=== PATIENT | male | born 1955 | race Caucasian/White ===

== ENCOUNTER → 2018-03-26 09:17 | Outpatient (CLI) | payer OTHER, SELFPAY ==
--- OUTSIDE RECORDS SUMMARY | 2018-05-28 05:53 | XMS RPT_ITS ---
:1955 Author Organization OHIP Support Name Relationship Address Phone LINDEN JOEL Unavailable [address] + [address] [place] [address] CALDERÓN ANNIACKE Unavailable [address] + [address]TOR[address] Unavailable [address] + [place], [place] [id number] [place] [address] LINDEN Unavailable [address] + [place], [place] [id number] [place] [address] LINDEN Unavailable [address] + [place] [address] [facility] Unavailable [address] + [place] [address] [facility] Unavailable [address] + [place] [address] [facility] Unavailable [address] + [place] [address] [facility] Unavailable [address] + [place] [address] [facility] Unavailable [address] + [place] [address] [facility] Unavailable [address] + [place] [address] [facility] Unavailable [address] + [place] [address] [facility] Unavailable [address] + [place], [place] [id number] [place] [address] LINDEN Unavailable [address] + [place] [address] [facility] [address] + [place] [address] [facility] [address] + [place] [address] [facility] [address] + [place] [address] [facility] [address] + [place] [address] Care Team Providers Name Role Phone TAMERA HERRERA., DR. KAYE King Attending Iram PHILIP MD., DR. KAYE King Primary Care Unavailable TAMERA HERRERA., DR. KAYE King Attending Iram PHILIP MD., DR. KAYE King Primary Care Unavailable TAMERA HERRERA., DR. KAYE King Attending Iram PHILIP MD., DR. KAYE King Primary Care Unavailable LAN ARIAS MD Attending Iram PHILIP MD., DR. KAYE King Primary Care Unavailable LAN ARIAS MD Attending Iram PHILIP MD., DR. KAYE King Primary Care Unavailable LAN ARIAS MD Attending Unavailable TAMERA YARBROUGH, DR. KAYE King Primary Care Unavailable LAN ARIAS MD Attending Iram PHILIP MD., DR. KAYE King Primary Care Unavailable LAN ARIAS MD Attending Iram PHILIP MD., DR. KAYE King Primary Care Unavailable Alondra Jane Attending Unavailable Alondra Jane Referring Unavailable KAYE PHILIP [facility] Unavailable PROBLEMS PROBLEMS No Problem Records FoundPROCEDURES PROCEDURES No Procedure Records FoundRESULTS RESULTS CT KNEE W/O CONTRAST Observed: 03/21/2018 Status: F Source: [facility] 4:00 PM [facility]OUNDATION REPOSITORY ORIGINAL CT KNEE W/O CONTRAST LEFT CLINICAL STATEMENT: varus deformity COMPARISON: None FINDINGS: This exam was performed according to our departmental dose- optimization program which includes automated exposure control, adjustment of the mA and/or kVp according to patient size and/or use of iterati ve reconstruction technique where applicable. CT of the knee performed without contrast with reformatted coronal and sagittal images. Survey images also obtained of the hip and ankle in preparation for prosthesis planning. Severe patellofemoral and medial tibiofemoral compartment joint arthrosis noted. There is bone on bone arthropathy in the medial tibiofemoral compartment. Prominent hypertrophic spurs noted in all 3 kinga nt compartments. There are degenerative cysts seen near the proximal tibiofibular syndesmosis. There may be some chondrocalcinosis in the posterior medial tibiofemoral compartment versus other dystrophi c calcification or even loose bodies. A small joint effusion visualized. There are some ossified bodies noted around the proximal tibiofibular syndesmosis. A prosthesis noted in the LEFT hip. The ankle is not evaluated in detail. There are degenerative changes in the visualized ankle/hindfoot. IMPRESSION: 1. 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 2. Dystrophic calcification/chondrocalcinosis or calcified loose bodies in the posterior medial tibiofemoral joint space 3. Numerous ossified bodies near the proximal tibiofibular syndesmosis Interpreted By: Ministerio Flores MD Preliminary Report By: Ministreio Flores MD Electronically Signed By: Ministerio Flores MD Dictated Date: 03/21/2018 11:14:03 AM Prelim Date: 03/21/2018 11:14:03 AM Sign Date: 03/21/2018 11:19:[address] KNEE W/O CONTRAST Observed: 03/21/2018 Status: F Source: [place] [employer] [facility] 3:00 PM [facility] EMERGENC[facility] DEPART[facility] REPOSITORY ORIGINAL CT KNEE W/O CONTRAST RIGHT CLINICAL STATEMENT: varus deformity COMPARISON: None FINDINGS: This exam was performed according to our departmental dose- optimization program which includes automated exposure control, adjustment of the mA and/or kVp according to patient size and/or use of iterati ve reconstruction technique where applicable. CT of the RIGHT knee performed for prosthesis planning. Axial images obtained of the knee with reformatted sagittal and coronal images. Survey images also obtained of the hip and ankle. Severe medial tibiofemoral compartment joint space loss and spurring noted. There is bone on bone arthropathy in the medial tibiofemoral compartment. Large hypertrophic lateral tibiofemoral compartment spurs seen but there is no significant joint space loss. Advanced patellofemoral joint arthrosis noted. Enthesophyte seen at the quadriceps insertion. A small joint effusion seen in the knee. Enthesophytes seen along the surface of the visualized RIGHT iliac bone. There are mild to moderate degenerative changes in the visualized RIGHT hip. The ankle is not evaluated in detail. No acute or aggressive osseous lesions seen. There are degenerative spurs in the visualized hindfoot/ankle. IMPRESSION: Severe tricompartmental degenerative changes in the RIGHT knee, most advanced in the medial tibiofemoral compartment and patellofemoral compartment Interpreted By: Ministerio Flores MD Preliminary Report By: Ministerio Flores MD Electronically Signed By: Ministerio Flores MD Dictated Date: 03/21/2018 11:11:29 AM Prelim Date: 03/21/2018 11:11:29 AM Sign Date: 03/21/2018 11:14:00 AM CBC Collected: 11/09/2017 Status: F Source: [facility] 7:25 [facility] REPOSITORY TYPE CODE TESTS RESULT OUT OF REFERENCE UNITS RANGE LAB WBC(LOINC) 4.60-10.80 10 3/mcL WBC 7.70 LAB RBCCT(LOINC 4.04-6.13 10 6/mcL ) RBC 4.88 LAB HGB(LOINC) 14.0-18.0 G/dL Hgb 14.9 LAB HCT(LOINC) 42.0-52.0 % Hct 43.6 LAB MCV(LOINC) 80.0-94.0 fL MCV 89.4 LAB MCH(LOINC) 27.0-31.2 pg MCH 30.6 LAB MCHC(LOINC) 31.8-35.4 G/dL MCHC 34.2 LAB RDW(LOINC) 11.5-14.5 % RDW 13.9 LAB PLT(LOINC) 130-400 10 3/mcL Platelet 234 LAB MPV(LOINC) 7.4-10.4 fL MPV 9.3 Performed By: #### CBC, ADIFF, ANEU #### [address] [address] #### LIPID, CMP, GFR, A1C #### [address] [address] .AUTO DIFF Collected: 11/09/2017 Status: F Source: [facility] 7:25 AM [facility] EMERGENCY DEPARTMENT REPOSITORY TYPE CODE TESTS RESULT OUT OF REFERENCE UNITS RANGE LAB JOSUE(LOINC) 37.0-80.0 % Neutrophil % 66.0 LAB LYM(LOINC) 10.0-50.0 % Lymphocyte % 22.5 LAB MON(LOINC) 1.7-13.0 % Monocyte % 7.9 LAB EO(LOINC) 0.0-7.0 % Eosinophil % 2.9 LAB BAS(LOINC) 0.0-2.5 % Basophil % 0.7 LAB ABLYM(LOIN 0.77-3.85 10 3/mcL C) Lymphocyte, 1.70 Absolute LAB DENA(LOINC 0.15-1.00 10 3/mcL ) Monocyte, 0.60 Absolute LAB AEOS(LOINC 0.00-0.40 10 3/mcL ) Eosinophil, 0.20 Absolute LAB ABAS(LOINC 0.00-0.19 10 3/mcL ) Basophil, 0.10 Absolute Performed By: #### CBC, ADIFF, ANEU #### [address] [address] #### LIPID, CMP, GFR, A1C #### [place] [id number] .NEUABS Collected: 11/09/2017 Status: F Source: [employer] 7:25 AM [facility] EMERGENC[facility]PARTMENT REPOSITORY TYPE CODE TESTS RESULT OUT OF REFERENCE UNITS RANGE LAB ANEU(LOINC) 2.85-6.16 10 3/mcL Neutrophil, 5.10 Absolute Performed By: #### CBC, ADIFF, ANEU #### [address] [address] #### LIPID, CMP, GFR, A1C #### [place] [id number] LIPID Collected: 11/09/2017 Status: F Source: [facility] 7:25 [facility] REPOSITORY TYPE CODE TESTS RESULT OUT OF REFERENCE UNITS RANGE LAB CHOL(LOINC 0-200 mg/dL ) Cholesterol 199 Result Comment: Cholesterol Reference Interval: Less than 200 Desirable 200-239 Borderline high risk 240 and above High risk LAB TRIG(LOINC) 0-150 mg/dL Triglycerides High 179 Result Comment: Triglyceride Reference Interval: Less than 150 Normal 150-199 Borderline high risk 200-499 High risk 500 or higher Very high risk LAB HD(LOINC) 40-60 mg/dL HDL Low Cholesterol 35 LAB LDL(LOINC) 0-130 mg/dL LDL Cholesterol 128 Performed By: #### CBC, ADIFF, ANEU #### [address] [address] #### LIPID, CMP, GFR, A1C #### [address] [address] CMP Collected: 11/09/2017 Status: F Source: [facility] 7:25 AM [facility] REPOSITORY TYPE CODE TESTS RESULT OUT OF REFERENCE UNITS RANGE LAB GLU(LOINC) 80-115 mg/dL Glucose High Level 140 LAB NA(LOINC) 136-145 mmol/L Sodium Level 141 LAB K(LOINC) 3.5-5.1 mmol/L Potassium Level 5.1 LAB CL(LOINC) 98-107 mmol/L Chloride 105 LAB CO2(LOINC) 23-31 mmol/L CO2 26 LAB EBAL(LOINC mEq/L ) Electrolyte Balance 10.0 LAB BUN(LOINC) 7-18 mg/dL BUN 17 LAB CRE(LOINC) 0.70-1.30 mg/dL Creatinine Lvl (s) 1.20 LAB BC(LOINC) 7-27 ratio BUN/Creatinine 14 Ratio LAB CA(LOINC) 8.4-10.2 mg/dL Calcium Lvl 9.6 LAB PROT(LOINC 6.4-8.2 G/dL ) Total Protein 7.8 LAB ALB(LOINC) 3.4-4.8 G/dL Albumin Level 3.7 LAB GLB(LOINC) G/dL Globulin 4.1 LAB AG(LOINC) 1.1-2.5 ratio Low A/G Ratio 0.9 LAB BILT(LOINC 0.2-1.0 mg/dL ) Bili Total 0.7 LAB AP(LOINC) 40-135 U/L Alk Phos 71 LAB AST(LOINC) 10-40 U/L AST/SGOT 37 LAB ALT(LOINC) 10-35 U/L ALT/SGPT High 51 Performed By: #### CBC, ADIFF, ANEU #### [address] [address] #### LIPID, CMP, GFR, A1C #### [address] [address] .GFR Collected: 11/09/2017 Status: F Source: [employer] 7:25 AM [facility] EMERGENCY [facility]PARTMENT REPOSITORY TYPE CODE TESTS RESULT OUT OF REFERENCE UNITS RANGE LAB GFRAA(LOINC ml/min/1.73 ) sqm GFR 74 Niuean Result Comment: GFR Population mean for , Non- Americans Ages 20-29 = 116 mL/min/1.73 sq.m. Ages 30-39 = 107 mL/min/1.73 sq.m. Ages 40-49 = 99 mL/min/1.73 sq.m. Ages 50-59 = 93 mL/min/1.73 sq.m. Ages 60-69 = 85 mL/min/1.73 sq.m. Ages 70+ = 75 mL/min/1.73 sq.m. Chronic Kidney Disease: Less than 60 mL/min/1.73 square meters End Stage Renal Disease: Less than 15 mL/min/1.73 square meters LAB GFRNO(LOINC) ml/min/1.73sqm GFR Non- 61 Result Comment: GFR Population mean for , Non- Americans Ages 20-29 = 116 mL/min/1.73 sq.m. Ages 30-39 = 107 mL/min/1.73 sq.m. Ages 40-49 = 99 mL/min/1.73 sq.m. Ages 50-59 = 93 mL/min/1.73 sq.m. Ages 60-69 = 85 mL/min/1.73 sq.m. Ages 70+ = 75 mL/min/1.73 sq.m. Chronic Kidney Disease: Less than 60 mL/min/1.73 square meters End Stage Renal Disease: Less than 15 mL/min/1.73 square meters Performed By: #### CBC, ADIFF, ANEU #### [place] [id number] [place], [place] [address] #### LIPID, CMP, GFR, A1C #### [address] [address] A1C Collected: 11/09/2017 Status: F Source: [employer] 7:25 AM [facility] EMERGENC[facility]PARTMENT REPOSITORY TYPE CODE TESTS RESULT OUT OF RANGE REFERENCE UNITS LAB A1C(LOINC) 4.5-6.2 % High Hgb A1c 7.8 Performed By: #### CBC, ADIFF, ANEU #### [place] [address] [place], [place] [address] #### LIPID, CMP, GFR, A1C #### [address] [address] CBC Collected: 07/13/2017 Status: F Source: [facility] 8:13 AM [facility] EMERGENCY DEPARTMENT REPOSITORY TYPE CODE TESTS RESULT OUT OF REFERENCE UNITS RANGE LAB WBC(LOINC) 4.60-10.80 10 3/mcL WBC 8.30 LAB RBCCT(LOINC 4.04-6.13 10 6/mcL ) RBC 4.72 LAB HGB(LOINC) 14.0-18.0 G/dL Hgb 14.8 LAB HCT(LOINC) 42.0-52.0 % Hct 42.8 LAB MCV(LOINC) 80.0-94.0 fL MCV 90.6 LAB MCH(LOINC) 27.0-31.2 pg MCH 31.2 LAB MCHC(LOINC) 31.8-35.4 G/dL MCHC 34.5 LAB RDW(LOINC) 11.5-14.5 % RDW 13.7 LAB PLT(LOINC) 130-400 10 3/mcL Platelet 223 LAB MPV(LOINC) 7.4-10.4 fL MPV 9.2 Performed By: #### CBC, ADIFF, ANEU, LIPID, CMP, GFR, A1C, PSA #### [place] [address] [place], [place] [address] .AUTO DIFF Collected: 07/13/2017 Status: F Source: [facility] 8:13 AM [facility] EMERGENCY DEPARTMENT REPOSITORY TYPE CODE TESTS RESULT OUT OF REFERENCE UNITS RANGE LAB JOSUE(LOINC) 37.0-80.0 % Neutrophil % 69.0 LAB LYM(LOINC) 10.0-50.0 % Lymphocyte % 21.8 LAB MON(LOINC) 1.7-13.0 % Monocyte % 6.2 LAB EO(LOINC) 0.0-7.0 % Eosinophil % 2.5 LAB BAS(LOINC) 0.0-2.5 % Basophil % 0.5 LAB ABLYM(LOIN 0.77-3.85 10 3/mcL C) Lymphocyte, 1.80 Absolute LAB DENA(LOINC 0.15-1.00 10 3/mcL ) Monocyte, 0.50 Absolute LAB AEOS(LOINC 0.00-0.40 10 3/mcL ) Eosinophil, 0.20 Absolute LAB ABAS(LOINC 0.00-0.19 10 3/mcL ) Basophil, 0.00 Absolute Performed By: #### CBC, ADIFF, ANEU, LIPID, CMP, GFR, A1C, PSA #### [address] [address] .NEUABS Collected: 07/13/2017 Status: F Source: [facility] 8:13 AM [facility] EMERGENCY DEPARTMENT REPOSITORY TYPE CODE TESTS RESULT OUT OF REFERENCE UNITS RANGE LAB ANEU(LOINC) 2.85-6.16 10 3/mcL Neutrophil, 5.70 Absolute Performed By: #### CBC, ADIFF, ANEU, LIPID, CMP, GFR, A1C, PSA #### [place] [address] [place], [place] [address] LIPID Collected: 07/13/2017 Status: F [facility] AM [facility] REPOSITORY TYPE CODE TESTS RESULT OUT OF REFERENCE UNITS RANGE LAB CHOL(LOINC 131-200 mg/dL ) Cholesterol High 215 Result Comment: Cholesterol Reference Interval: Less than 200 Desirable 200-239 Borderline high risk 240 and above High risk LAB TRIG(LOINC) 40-150 mg/dL Triglycerides High 223 Result Comment: Triglyceride Reference Interval: Less than 150 Normal 150-199 Borderline high risk 200-499 High risk 500 or higher Very high risk LAB HD(LOINC) 35-90 mg/dL HDL Cholesterol 40 Result Comment: HDL Reference Interval: Less than 40 Low - high risk 60 or above Optimal/lowers risk LAB LDL(LOINC) 0-130 mg/dL LDL Cholesterol 130 Result Comment: LDL is a calculated result and requires a 12-hr fast. LDL Reference Interval: Less than 100 Optimal 100-129 Near or above optimal 130-159 Borderline high risk 160-189 High risk 190 and above Very high risk Performed By: #### CBC, ADIFF, ANEU, LIPID, CMP, GFR, A1C, PSA #### [place] [address] [place], [place] [address] CMP Collected: 07/13/2017 Status: F [facility] AM [facility] EM[facility]PART[facility] REPOSITORY TYPE CODE TESTS RESULT OUT OF REFERENCE UNITS RANGE LAB GLU(LOINC) 80-115 mg/dL Glucose High Level 229 LAB NA(LOINC) 136-146 mEq/L Sodium Level 142 LAB K(LOINC) 3.5-5.1 mEq/L Potassium Level 4.8 LAB CL(LOINC) 98-107 mEq/L Chloride 103 LAB CO2(LOINC) 23-31 mEq/L CO2 31 LAB EBAL(LOINC mEq/L ) Electrolyte Balance 8.0 LAB BUN(LOINC) 7.0-18.0 mg/dL BUN 12.0 LAB CRE(LOINC) 0.6-1.2 mg/dL Creatinine Lvl (s) 0.9 LAB BC(LOINC) 7-27 ratio BUN/Creatinine 13 Ratio LAB CA(LOINC) 8.4-10.2 mg/dL Calcium Lvl 9.4 LAB PROT(LOINC 6.0-8.3 G/dL ) Total Protein 6.7 LAB ALB(LOINC) 3.4-4.8 G/dL Albumin Level 3.8 LAB GLB(LOINC) G/dL Globulin 2.9 LAB AG(LOINC) 1.1-2.5 ratio A/G Ratio 1.3 LAB BILT(LOINC 0.2-1.0 mg/dL ) Bili Total 0.8 LAB AP(LOINC) 40-135 IU/L Alk Phos 64 LAB AST(LOINC) 10-40 IU/L AST/SGOT High 53 LAB ALT(LOINC) 10-35 IU/L ALT/SGPT High 80 Performed By: #### CBC, ADIFF, ANEU, LIPID, CMP, GFR, A1C, PSA #### [address] [address] .GFR Collected: 07/13/2017 Status: F Source: [place] [employer] 8:13 AM [facility]OUNDATION REPOSITORY TYPE CODE TESTS RESULT OUT OF REFERENCE UNITS RANGE LAB GFRAA(LOINC ml/min/1.73 ) sqm GFR 105 Niuean Result Comment: GFR Population mean for , Non- Americans Ages 20-29 = 116 mL/min/1.73 sq.m. Ages 30-39 = 107 mL/min/1.73 sq.m. Ages 40-49 = 99 mL/min/1.73 sq.m. Ages 50-59 = 93 mL/min/1.73 sq.m. Ages 60-69 = 85 mL/min/1.73 sq.m. Ages 70+ = 75 mL/min/1.73 sq.m. Chronic Kidney Disease: Less than 60 mL/min/1.73 square meters End Stage Renal Disease: Less than 15 mL/min/1.73 square meters LAB GFRNO(LOINC) ml/min/1.73sqm GFR Non- >60 Result Comment: GFR Population mean for , Non- Americans Ages 20-29 = 116 mL/min/1.73 sq.m. Ages 30-39 = 107 mL/min/1.73 sq.m. Ages 40-49 = 99 mL/min/1.73 sq.m. Ages 50-59 = 93 mL/min/1.73 sq.m. Ages 60-69 = 85 mL/min/1.73 sq.m. Ages 70+ = 75 mL/min/1.73 sq.m. Chronic Kidney Disease: Less than 60 mL/min/1.73 square meters End Stage Renal Disease: Less than 15 mL/min/1.73 square meters Performed By: #### CBC, ADIFF, ANEU, LIPID, CMP, GFR, A1C, PSA #### [place] [address] [address] A1C Collected: 07/13/2017 Status: F Source: [facility] 8:13 AM [facility] EMERGENCY DEPARTMENT REPOSITORY TYPE CODE TESTS RESULT OUT OF RANGE REFERENCE UNITS LAB A1C(LOINC) 4.8-5.9 % High Hgb A1c 9.6 Performed By: #### CBC, ADIFF, ANEU, LIPID, CMP, GFR, A1C, PSA #### [place] [address] [address] PSA Collected: 07/13/2017 Status: F Source: [facility] 8:13 AM [facility] EMERGENCY DEPARTMENT REPOSITORY TYPE CODE TESTS RESULT OUT OF REFERENCE UNITS RANGE LAB PSA(LOINC) 0.00-4.00 ng/mL Prostate 2.31 Specific Antigen Performed By: #### CBC, ADIFF, ANEU, LIPID, CMP, GFR, A1C, PSA #### [address] [address] ALLERGIES ALLERGIES DATE TYPE / CODE NAME / CODE REACTION SEVERITY SOURCE 12/30/2012 Drug valsartan/F0 Other Unknown [facility] Allergy/4160 [id number]([facility] [address](SNOMED ORM) Repository CT) ENCOUNTERS ENCOUNTERS ADMIT/DISCHARGE ACCOUNT NUMBER ADMITTING ENCOUNTER LOCATION SOURCE CLASS 03/26/2018 [id number] [facility] 03/21/2018/03/21/19 [id number] Ambulatory BBuilding:RA [place] [facility] Repository 03/10/2018 [id number] Ambulatory BBuilding:OP [facility] Repository 03/10/2018 [id number] Ambulatory BBuilding:OS [facility] Repository 03/10/2018 [id number] Ambulatory BBuilding:OP [facility] Repository 03/10/2018 [id number] Ambulatory BBuilding:OS [facility] Repository 11/09/2017/11/10/19 [id number] Ambulatory [address] ding:OLAB [facility] Repository 08/30/2017 [id number] Ambulatory BBuilding:DV [facility] Repository 07/13/2017/07/14/19 [id number] Ambulatory BBuilding:OL [address] Repository PAYERS PAYERS ENCOUNTER GUARANTOR PAYER SUBSCRIBER SOURCE 03/26/2018 [facility] [id number] Insurance:AETNAExcel[facility] [address] Number: [id number] [id number] Repository [address]Qdq: [phone]) Date:2098-34-05[phone] ( [place] [address]RE: 03/26/2018 [facility]:SELF PAY [facility] Number: Effective Repository Date:2018-03-14 03/21/2018 [facility] Insurance:AETNA DUNHAMDOB: [facility] [id number] NACPolicy Number: [id number] Date:2018-03-10 - [address], [address] [id number] [place] [address]Sgx: [email or web address] Name:CP [address] : [id number] [place] [address] (HP)Tel: (000) (HP)Tel: [phone]: (WP) [phone] (WP) [phone] 03/10/2018 [facility]: [facility] NACPolicy Number: [id number] [address], [place] Date:2018-03-10 - [address] [facility] [address] [id number] [place] [address]Ntw: [email or web address] Name:CP O BOX : [address] [place] [address] (HP)Tel: (000) (HP)Tel: [phone]: (WP) [phone] (WP) [phone] 03/10/2018 [facility]: Insurance:[facility]ITAL[facility]: [facility] NACPolicy Number: [id number] [id number] [address], [place] Date:2018-03-10 - [address] [address] [id number] [place] [address]Xaq: [email or web address] Name:CP [address] : [id number] [place] [address] (HP)Tel: (000) (HP)Tel: [phone]: (WP) [phone] (WP) [phone] 03/10/2018 JESUS Fouzia [facility]: Insurance:[facility]: [facility] NACPolicy Number: [id number] [address] [facility] [place] Date:2018-03-10 - [address] [place] [address], [address]~[facility]. [id number] [place] [address]Aot: [email or web address] Name:CP O BOX : [address] [place] [address] (HP)Tel: (880) (HP)Tel: [phone]: (WP) [phone] (WP) [phone] 03/10/2018 [facility]: [facility] NACPolicy Number: [id number] [id number] [address] [facility] [place] Date:2018-03-10 - [address] [place] [address], [address]~[facility]. [id number] [place] [address]Fdr: [email or web address] Name:CP O BOX : [address] [place] [address] (HP)Tel: (000) (HP)Tel: [phone]: (WP) [phone] (WP) [phone] 11/09/2017 [facility]: Insurance:[facility]: [facility] NACPolicy Number: [id number] [address] [id number] [address], [place] Date:2017-11-09 - [address] [place] [address], [address]~[facility]. [id number] [place] [address]Boa: [email or web address] Name:AP [address] : [address] (HP)Tel: (000) (HP)Tel: [phone]: (WP) [phone] (WP) [phone] 08/30/2017 [facility]: [facility] NACPolicy Number: [id number] [id number] [address] [facility] [place] Date:2017-08-20 - [address] [place] [address], [address]~[facility] [id number] [place] [address]Nwb: [email or web address] Name:AP [address] : [id number] [place] [address] (HP)Tel: (000) (HP)Tel: [phone]: (WP) [phone] (WP) [phone] 07/13/2017 [facility]: Insurance:AETCITIZENS [facility]AP[facility]: [facility] AECPolicy Number: [id number], [place] Date:2017-07-13 - [address] [place] [address], [address]~[facility]. [id number] [place] [address]Jyx: [email or web address] [email or web address] CENTERkeyona Name:DEVELOPMENTAL BEHAVIORAL PHYSICIAN [id number] : [place], [place] (HP)Tel: (000) (HP)Tel: [phone]: (WP) [phone] ([phone]
== END ==
PROVIDERS: Family Provider Family Medicine; PCP Family Medicine; Referring Provider Nurse Practitioner Family; Visit Provider Nurse Practitioner Family
DX: Z01.818 Encounter for other preprocedural examination (principal)

== ENCOUNTER → 2018-04-01 05:45 | Outpatient (CLI) | payer OTHER, SELFPAY ==
--- NOTE | 2018-04-01 11:47 | STRESSREP_ITS ---
Stress Test Report Date: 04/01/2017 Procedure: Pharmacologic stress nuclear imaging study Indications: Hypertension; preoperative cardiovascular evaluation Consent: Per the patient Procedure: The patient underwent pharmacologic (Regadenoson) evaluation with a peak heart rate of 74 beats per minute (46% predicted maximal heart rate) and a peak blood pressure of 198/90 mmHg. The baseline ECG demonstrated normal sinus rhythm; incomplete left bundle branch block pattern . The peak pharmacologic ECG demonstrated no obvious ECG changes . There were no cardiac dysrhythmias pretest, during pharmacologic infusion, or recovery. There was no complaint of chest discomfort during pharmacologic infusion or recovery. The examination was discontinued secondary to completion of protocol. Impression: 1. Pharmacologic (Regadenoson) evaluation 2. Peak pharmacologic ECG with no obvious ECG changes . 3. There were no cardiac dysrhythmias pretest, during pharmacologic infusion, or recovery. 4. Nuclear images pending Myocardial perfusion imaging study: Technique: The patient was injected with 14.9 millicuries of technetium 99m Cardiolite and subsequently rest SPECT Cardiolite nuclear imaging was obtained in the horizontal long, vertical long, and short axis views. The patient underwent pharmacologic (Regadenoson) evaluation with a peak heart rate of 74 beats per minute (46 % percent predicted maximal heart rate) and a peak blood pressure of 198/90 mmHg. The patient was injected with 44.8 millicuries of technetium 99m Cardiolite and subsequently stress SPECT Cardiolite nuclear imaging was obtained in the horizontal long, vertical long, and short axis views. A gated Cardiolite study at peak stress was obtained. Interpretation: Rest and stress SPECT Cardiolite nuclear imaging status post realignment and normalization demonstrate the appearance of diminished tracer uptake in portions of the basal to mid inferior segments at rest. Status post stress there are similar type findings as well as areas of diminished tracer uptake in portions of the mid to distal anterior segments as well as the mid to distal inferior/lateral segments . There is end systolic thickening and brightening. The gated Cardiolite study demonstrates myocardial thickening and inward wall motion. The reported LVEF is 43 %. Impression: 1. Rest and stress SPECT Cardiolite nuclear imaging demonstrate myocardial perfusion changes potentially compensable an area of previous myocardial injury/infarction involving portions of the basal to distal inferior segments as well as post stress myocardial perfusion changes concerning for an area of stress induced myocardial ischemia involving portions of the mid to distal anterior and mid and distal lateral/inferolateral segments . 2. The gated Cardiolite study reports an LVEF of 43 %. Of note, secondary to the patient's body habitus, contribution from soft tissue attenuation/artifact the aforementioned findings cannot necessarily be excluded. This note was generated with [employer] software. It may contain incorrect words, spelling, and punctuation that were not noted in checking the note before signing.
== END ==
PROVIDERS: Family Provider Family Medicine; PCP Family Medicine; Referring Provider Nurse Practitioner Family; Visit Provider Nurse Practitioner Family
DX: I10 Essential (primary) hypertension (principal); G47.33 Obstructive sleep apnea (adult) (pediatric)
CPT/HCPCS: 78452; 93017; A9500; A4216; J2785

== ENCOUNTER 2018-04-11 06:31 | Day surgery (SDC) | payer OTHER, SELFPAY ==
[2018-04-09 15:37] VITALS: BMI 45.7
--- NOTE | 2018-04-10 08:30 | RAD_ITS ---
HISTORY: CHEST PAIN EXAM:XR Chest 2 Views: COMPARISON: 03/10/2013 FINDINGS: No significant change. Normal heart size. No vascular congestion, pleural effusion, or acute pulmonary infiltration. No pneumothorax. Remote healed fracture of the mid right clavicle. Benign changes of DISH of the dorsal spine. RAD/Chest PA and Lateral IMPRESSION: No acute cardiopulmonary disease. No significant interval change. at 0217 Reported and signed by: Maged Champion MD Electronically Signed: Maged Champion, at 2:16 EST Tel , Service support ,
[2018-04-10 08:59] LABS: Absolute Lymphocyte Count 1.59 X10^3/ul (0.83-4.51); Absolute Neutrophil Count 5.8 X10^3/uL (2.0-7.7); Basophil# 0.02 X10^3/uL; Basophil% 0.2 % (0-1); Eosinophil# 0.21 X10^3/uL; Eosinophils% 2.6 % (0-5); Hematocrit 42.5 % (40-54); Hemoglobin 14.1 g/dl (13.0-16.5); Lymphocyte # 1.59 X10^3/ul (4.0); Lymphocyte % 19.3 % (19-41); Mean Corp Hgb Conc 33.2 g/gl (32-36); Mean Corpuscular Hgb 30.3 pg (27.0-32.0); Mean Corpuscular Volume 91.4 fL (80-94); Mean Platelet Vol. 10.9 fl (6.2-12.0); Monocyte# 0.58 X10^3/uL; Monocyte% 7.1 % (0-10); Neutrophil # 5.78 X10^3/uL (2.7-7.7); Neutrophil % 70.3 % (47-70); Platelet Count 249 K/mm3 (150-450); RBC Distribution Width CV 13.9 % (11.6-14.6); RBC Distribution Width SD 45.9 fl (35.1-43.9); Red Blood Count 4.65 M/mm3 (4.6-6.2); White Blood Count 8.2 K/mm3 (4.4-11.0)
[2018-04-10 09:00] LABS: POSITIVE COUNT NO; POSITIVE DIFFERENTIAL NO; POSITIVE MORPHOLOGY NO
[2018-04-10 09:02] VITALS: BMI 45.7
[2018-04-10 09:37] LABS: Anion Gap 12 (5-15); BUN 19 mg/dL (7-18); Calcium,Total 9.7 mg/dL (8.5-10.1); Chloride 104 mmol/L (98-107); Creatinine, Serum 1.27 mg/dL (0.70-1.30); EST Glomerular Filtration Rate 61 mL/min (>60); Est Glom Filt Rate - Afr Amer 74 mL/min (>60); Estimated Creatinine Clearance 79.93 ml/min; Glucose 154 mg/dL (74-106); Potassium 3.6 mmol/L (3.5-5.1); Sodium Level 142 mmol/L (136-145)
[2018-04-11] VITALS (23 sets, daily range): BP systolic 191–225; BP diastolic 65–97; PULSE 55–63; RESP 12–19; TEMP 36.8–37.2; O2SAT 95–98
--- NOTE | 2018-04-11 08:52 | CL.D_ITS ---
Patient Name: JESUS JOEL Study Date: 04/11/2018 Performing: Jerry Evans MD Ht: 79.13 inches 201 cm : 1955 Wt: 405.65 lbs 184 kg Age: 62 Gender: male BSA: 3.08 PROCEDURE(S) PERFORMED TS65-EVR/COR/LV CLINICAL PROFILE AND INDICATIONS Indications: Suspected CAD Heart Failure: None Stress/Imaging Stress Test w/SPECT MPI: Yes Result: Positive Intermediate RiskStress Test with SP ECT MPI: Positive Intermediate Risk CAD Presentations: No Sxs, no angina. CONCLUSIONS Coronary artery disease with moderately severe stenosis noted in the mid left anterior descending art gem and severe disease noted of the ostium of the posterior descending artery. RECOMMENDATIONS Referred for immediate PCI DESCRIPTION OF PROCEDURE The patient arrived to the procedure lab. The risks and benefits of the procedure as well as a full d escription of our services here and current unavailability of surgical backup were fully explained to the patient and/or their significant other prior to the catheterization. The Timeout was completed, verifying the correct patient and procedure. The patient's procedural site was prepped and draped in the usual fashion. Local anesthetic was given subcutaneously to right radial region with Lidocaine 2% . Using a modified Seldinger technique, arterial access was obtained via the right radial artery, a 5 Fr sheath was inserted. Left Coronary Artery selective angiography was performed in multiple views u sing a 5 Fr. 4.0 [place] catheter. Right Coronary Artery selective angiography was then performed in mu ltiple views using a 5 Fr. 4.0 [place] catheter. Left Ventriculography was performed in [place]ANK[place] projection using a 5 Fr. Pig[place] catheter. LV to AO pullback pressures were then recorded. Left Coronary Artery selective angiography was performed in multiple views using a 6 Fr. JL 6-125cm cathet er. CORONARY ANGIOGRAPHY DOMINANCE: Right Dominant LEFT HEART ASSESSMENT Left Ventricular Ejection Fraction: by LV Gram 60 % Normal LV wall motion Normal Left Ventricular systolic function LEFT MAIN: Angiographically normal LEFT ANTERIOR DECENDING ARTERY: MID LAD: 60-70 % Stenosis CIRCUMFLEX ARTERY: No significant disease noted RIGHT CORONARY ARTERY: 80 ostial PDA % Stenosis COMPLICATIONS PROCEDURE MEDICATIONS Fentanyl 50 mcg IV Versed 1 mg IV Versed 1 mg IV Fentanyl 25 mcg IV Oxygen: 2 L/min via nasal cannula Heparin diluted in 23cc Heparinized saline. Patient given 10cc IA of this solution. 04/11/2018 07:59:2 9 Heparin 2000 unit(s) IV 04/11/2018 08:43:31 Nitro Tab 0.4 mg PO 04/11/2018 08:01:12 Verapamil 2.5mg, Ntg 100mcgs, 2000 units of Heparin diluted in 23cc Heparinized saline. Patient give n 10cc IA of this solution. 04/11/2018 07:59:29 SUMMARY OF HEMODYNAMIC DATA Time AIR REST ECG 07:09:04 AO 159/62 (103) SA 08:03:02 LV 149/0, 6 08:18:10 LV 157/2, 12 08:18:17 LV 170/0, 18 08:19:56 LVp 169/2, 17 08:20:02 AOp 164/67 (105) 08:20:07 Signed By Jerry Evans MD On 04/11/2018 8:50:49 AM Jerry Evans MD
[2018-04-11 10:17] LABS: ACT Activated Clotting Time 246 sec (74-137)
[2018-04-11 10:17] LABS: ACT Activated Clotting Time 257 sec (74-137)
[2018-04-11] MEDS: 0.9% Normal Saline 1,000 ML 150 ML IV (10:30)
--- NOTE | 2018-04-11 10:30 | EKG12_ITS ---
Test Reason : S/P PCI Blood Pressure : / mmHG Vent. Rate : 057 BPM Atrial Rate : 057 BPM P-R Int : 200 ms QRS Dur : 138 ms QT Int : 474 ms P-R-T Axes : 023 -52 103 degrees QTc Int : 461 ms Sinus bradycardia Left axis deviation Left ventricular hypertrophy with QRS widening and repolarization abnormality Abnormal ECG Confirmed by MISAEL HERRERA, HUSSEIN ([id number]), deputy editor in chief DALTON HURTADO ([id number]) on 04/17/2018 1:07:22 PM Referred By: Hussein Evans Confirmed By:HUSSEIN EVANS MD
--- NOTE | 2018-04-11 11:30 | NURSING ---
Called Dr Evans's office and verified pt's med list.
--- NOTE | 2018-04-11 11:43 | CRPHASE1 ---
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 Risk Factors/Lifestyle Smoking Status: Never smoker Hx Hypertension: Yes Hx Diabetes Mellitus Type 1: No Hx Diabetes Mellitus Type 2: Yes Hx Metabolic Disorders: Yes Hx Dyslipidemia: Yes Hx Obesity: Yes Height: 6 ft 7 in - BMI 45.7 Stress: Home/Family ETOH: No Substance Abuse: No Risk Factor for Sedentary Lifestyle: Highest Risk Family History: Family History (Last Reviewed 04/09/18 @ 16:07 by Jerry Evans MD) Brother CAD (coronary artery disease) Father Diabetes Heart disease Mother Kidney disease Past Cardiac Illness: Myocardial Infarction Phase I Education Given On:: [place], Nutrition, Antiplatelet medication, Diabetes - Type II Issues Affecting Care:: None Knowledge of Condition:: Yes Learning Preferences: Verbal, Written - AT BEDSIDE Hospital Course Presenting Symptoms:: ABNORMAL STRESS TEST Medical/Surgical History MO:: Yes - HISTORY - FROM CARDIAC SPASM Angina:: No CAD:: No BRITTANI:: Yes Diabetes:: Yes Diabetes Type I:: No Diabetes Type II:: Yes Hypertension:: Yes Dyslipidemia:: Yes GERD:: Yes Depression:: Yes Other Medical/Surgical Issues:: PULMONARY HTN CABG: No PTCA:: No ICD:: No Pacemaker:: No Discharge/Home/Social Eval Discharge Disposition: Home Marital Status: - AT BEDSIDE
--- NOTE | 2018-04-11 11:47 | CRPHASE1_ITS ---
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 Risk Factors/Lifestyle Smoking Status: Never smoker Hx Hypertension: Yes Hx Diabetes Mellitus Type 1: No Hx Diabetes Mellitus Type 2: Yes Hx Metabolic Disorders: Yes Hx Dyslipidemia: Yes Hx Obesity: Yes Height: 6 ft 7 in - BMI 45.7 Stress: Home/Family ETOH: No Substance Abuse: No Risk Factor for Sedentary Lifestyle: Highest Risk Family History: Family History (Last Reviewed 04/09/18 @ 16:07 by Jerry Evans MD) Brother CAD (coronary artery disease) Father Diabetes Heart disease Mother Kidney disease Past Cardiac Illness: Myocardial Infarction Phase I Education Given On:: [place], Nutrition, Antiplatelet medication, Diabetes - Type II Issues Affecting Care:: None Knowledge of Condition:: Yes Learning Preferences: Verbal, Written - AT BEDSIDE Hospital Course Presenting Symptoms:: ABNORMAL STRESS TEST Medical/Surgical History [place]:: Yes - HISTORY - FROM CARDIAC SPASM Angina:: No CAD:: No BRITTANI:: Yes Diabetes:: Yes Diabetes Type I:: No Diabetes Type II:: Yes Hypertension:: Yes Dyslipidemia:: Yes GERD:: Yes Depression:: Yes Other Medical/Surgical Issues:: PULMONARY HTN CABG: No PTCA:: No ICD:: No Pacemaker:: No Discharge/Home/Social Eval Discharge Disposition: Home Marital Status: - AT BEDSIDE
--- NOTE | 2018-04-11 11:47 | CRPH1.INSTRU ---
General Education CAD and cardiac anatomy and function:: Patient communicates acknowledgment - AT BEDSIDE, Family communicates acknowledgment Explanation of diagnoses and procedures:: Patient communicates acknowledgment, Family communicates acknowledgment Sign/Symptoms of OK:: Patient communicates acknowledgment, Family communicates acknowledgment Antiplatelet therapy: Patient communicates acknowledgment, Family communicates acknowledgment Proper use of NTG-SL: Not instructed Emergency procedures and activation of EMS: Patient communicates acknowledgment, Family communicates acknowledgment Compliance of all prescribed medications: Patient communicates acknowledgment, Family communicates acknowledgment Smoking Patient Nicotine/Smoking Risk Factors Are:: Never smoked Dyslipidemia Recommendations Include:: Lipid profile not available, Reviewed NCEP/ATP guidelines, Therapeutic Lifestyle Change dietary guidelines Dyslipidemia Response Code:: Patient communicates acknowledgment, Family communicates acknowledgment Overweight/Obesity Patient Overweight/Obesity Risk Factors Are:: Obesity - > or = 30 Recommendations Include:: Weight loss of 5-10%, Reduced calorie diet, Exercise 5-7 times/week Overweight/Obesity:: Patient communicates acknowledgment, Family communicates acknowledgment Hypertension Recommendations Include:: BP <130/80 if diabetic, DASH dietary guidelines, Decrease/maintain normal body weight, Moderation of ETOH Hypertension:: Patient communicates acknowledgment, Family communicates acknowledgment Heart Disease Patient Heart Disease Risk Factors Are:: Family history of heart disease < 65 years old, Previous cardiac event Recommendations Include:: Educated family members of their risk, Educated family members of importance of prevention of heart disease Heart Disease Response Code:: Patient communicates acknowledgment, Family communicates acknowledgment Diabetes Patient Diabetes Risk Factors Are:: Elevated blood sugars Recommendations Include:: Maintain fasting blood sugars 70-110 md/dL, Maintain HgbA1c of 6% or less, Monitor blood sugar as prescribed, Diabetic dietary guidelines, Decrease/maintain body weight Diabetes:: Patient communicates acknowledgment, Family communicates acknowledgment Metabolic Syndrome Patient Metabolic Syndrome Risk Factors Are [3 of 5]:: Fasting blood sugar > 100 mg/dL, Waist circumference > 35 [female] or 40 [male], Hypertension Recommendations Include:: Reinforce compliance to risk factor modifications, Patient is diabetic, Encouraged follow-up with Primary Care Physician Metabolic Syndrome Response Code:: Patient communicates acknowledgment, Family communicates acknowledgment Sedentary Patient Sedentary Risk Factors Are:: Lack of regular exercise Recommendations Include:: Aerobic exercise 5-7 times/week for 20-30 minutes continuously, Benefits of regular exercise, Discussed home walking program, Monitored Outpatient Cardiac Rehab Sedentary Response Code:: Patient communicates acknowledgment, Family communicates acknowledgment Stress Recommendations Include:: Identification of stressors, and assessment of coping skills, Stress management techniques Stress Response Code:: Patient communicates acknowledgment, Family communicates acknowledgment
--- NOTE | 2018-04-11 12:03 | ECHOL_ITS ---
Reason For Study: R/O Pericardial effusion Procedure This was a limited 2D transthoracic echocardiogram. Exam performed portable in ICU/CCU. Left Ventricle Normal LV size. Left ventricular systolic function is normal. The estimated ejection fraction is 60 %. No regional wall motion abnormalities noted. Great Vessels Mildly dilated aortic root. Pericardium/Pleural No pericardial effusion. Epicardial fat. MMode/2D Measurements & Calculations LVIDd: 5.7 cm IVSd: 1.6 cm Ao root diam: 3.8 cm LVIDs: 3.5 cm LVPWd: 1.4 cm FS: 38.0 % LA dimension(2D): 4.5 cm Interpretation Summary Normal LV size. Left ventricular systolic function is normal. The estimated ejection fraction is 60 %. Mildly dilated aortic root. No pericardial effusion. Ordering Physician: Laura Lopez Referring Physician: Jerry Evans Performed By: Nemo Martinez RDCS
[2018-04-11] MEDS: cloNIDine HCl 0.2 MG Tablet PO ×2 (12:08→21:33)
[2018-04-11] MEDS: hydrALAZINE 50 MG Tablet 100 MG PO ×2 (13:08→20:40)
--- NOTE | 2018-04-11 14:52 | PCM.DC.CCA ---
<TulioParishLynn M - Last Filed: 04/11/18 14:52> Discharge Diet: No Restrictions - You may continue your normal diet. May shower in (days): 1 Lifting Restrictions: 10 pounds and also avoid any pushing or pulling for 3 days after your test. Call your doctor if your incision/area has: Increased Pain/ Swelling, Increased Redness, Foul Smelling Discharge, Swelling at the incision site Call your doctor if you observe: Fever of 101 or Higher, Shortness of breath, Chest pain Remove Dressing in (days):: 1 Additional Dressing/Incision Instructions:: Keep the dressing (bandage) on until the next morning. You may then shower, but do not take a tub bath for 5 days after your test. It is normal to have some tenderness and discomfort at the puncture site. Sometimes bruising also occurs. However, if pain, numbness, or coldness occurs below the puncture site (in your leg, toes, arms or fingers) call your doctor at once. You may have a small, marble sized knot at the puncture site. This is normal. Do not rub it. It will go away in 4-6 weeks. Bleeding can occur from the area where the puncture was done. Blood may spurt or drip from the site. If blood spurts, apply pressure right away to stop bleeding and call 911. Although rare, bleeding into the tissue (hematoma) can also occur. If this happens, a large, firm area goose egg under the skin will appear. If any of these occur, lie down as flat as you can and have someone apply firm pressure to the cath site with a gauze pad or a clean washcloth for 10-15 minutes. Call 911 or go to the Emergency Department. Additional Instructions: You need to stay on your plavix for at least one year. When you return to the office we will discuss cardiac rehab. Allergies/Adverse Reactions: Allergies valsartan [From [place]] Adverse Reaction (Verified 04/09/18 13:10) Other Medications to take at Discharge ALPRAZolam [Xanax] 0.25 mg PO TID 12/30/12 Esomeprazole Mag Trihydrate [Nexium] 40 mg PO BID 12/30/12 Guanfacine HCl [Tenex] 2 mg PO BID 12/30/12 Losartan Potassium [Cozaar] 100 mg PO DAILY 12/30/12 Multivitamins,Therapeutic [Multivitamin] 1 tab PO DAILY 12/30/12 Insulin Aspart [Novolog Flexpen] 30 units SUBCUT TIDCM #1 box 04/24/13 Oxycodone HCl/Acetaminophen [Percocet 5-325] 1 - 2 tab PO Q4H PRN PRN #30 tab 04/24/13 amlodipine 5 mg-olmesartan 40 mg tablet 1 tab PO BID tab 04/08/18 aspirin 81 mg tablet,delayed release 81 mg PO DAILY 04/08/18 carvedilol 25 mg tablet 50 mg PO BID tab 04/08/18 ferrous sulfate 325 mg (65 mg iron) tablet 325 mg PO DAILY tab 04/08/18 hydralazine 100 mg tablet 100 mg PO TID tab 04/08/18 metoclopramide 5 mg tablet 5 mg PO TID tab 04/08/18 omega [id number]-fish oil 1,000 mg (120 mg-180 mg) capsule 1 cap PO BID cap 04/08/18 celecoxib 200 mg capsule 1 capsule PO QODAY 90 Days #90 cap 04/09/18 clonidine HCl 0.2 mg tablet 0.2 mg PO Q8H tab 04/09/18 clopidogrel 75 mg tablet 75 mg PO DAILY #14 tab 04/09/18 insulin degludec (U-100) 100 unit/mL (3 mL) subcutaneous pen 180 unit SC QHS ml 04/09/18 paroxetine 30 mg tablet 37.5 mg PO DAILY tab 04/09/18 Primary Care Physician: Rory Samuel MD [Primary Care Provider] - Test Results: Test results from this visit will be discussed in further detail at your follow-up appointment, if applicable. Please Follow Up With: Lynn Antunez PA When: 04/22 at 3pm Cardiac Rehabilitation Info Cardiac Rehabilitation Program Information: Cardiac Rehabilitation is important for patients like you who are recovering from a heart problem. Cardiac rehabilitation programs are recognized as integral to the continued care of the patient with coronary heart disease. The cardiac rehabilitation program is designed to optimize a patient's physical, psychological, and social functioning. Health customer care team coach work in cardiac rehabilitation programs and assist you with getting the treatments you need to get stronger and healthier - like exercise, healthy eating habits, and medications. Cardiac rehabilitation has been show to help people with heart problems live longer and have better life enjoyment than people who do not go to cardiac rehabilitation. Please contact the Cardiac Rehabilitation Program at [facility] at in two weeks if you have not heard from them. <Jerry Evans - Last Filed: 04/12/18 09:25> Test Results: Test results from this visit will be discussed in further detail at your follow-up appointment, if applicable. Proposed Discharge Date: 04/12/18 Cardiac Rehabilitation Info Cardiac Rehabilitation Program Information: Cardiac Rehabilitation is important for patients like you who are recovering from a heart problem. Cardiac rehabilitation programs are recognized as integral to the continued care of the patient with coronary heart disease. The cardiac rehabilitation program is designed to optimize a patient's physical, psychological, and social functioning. Health customer care team coach work in cardiac rehabilitation programs and assist you with getting the treatments you need to get stronger and healthier - like exercise, healthy eating habits, and medications. Cardiac rehabilitation has been show to help people with heart problems live longer and have better life enjoyment than people who do not go to cardiac rehabilitation. Please contact the Cardiac Rehabilitation Program at [facility] at in two weeks if you have not heard from them.
--- NOTE | 2018-04-11 14:57 | DCINST_ITS ---
<TulioParishLynn M - Last Filed: 04/11/18 14:52> Discharge Diet: No Restrictions - You may continue your normal diet. May shower in (days): 1 Lifting Restrictions: 10 pounds and also avoid any pushing or pulling for 3 days after your test. Call your doctor if your incision/area has: Increased Pain/ Swelling, Increased Redness, Foul Smelling Discharge, Swelling at the incision site Call your doctor if you observe: Fever of 101 or Higher, Shortness of breath, Chest pain Remove Dressing in (days):: 1 Additional Dressing/Incision Instructions:: Keep the dressing (bandage) on until the next morning. You may then shower, but do not take a tub bath for 5 days after your test. It is normal to have some tenderness and discomfort at the puncture site. Sometimes bruising also occurs. However, if pain, numbness, or coldness occurs below the puncture site (in your leg, toes, arms or fingers) call your doctor at once. You may have a small, marble sized knot at the puncture site. This is normal. Do not rub it. It will go away in 4-6 weeks. Bleeding can occur from the area where the puncture was done. Blood may spurt or drip from the site. If blood spurts, apply pressure right away to stop bleeding and call 911. Although rare, bleeding into the tissue (hematoma) can also occur. If this happens, a large, firm area goose egg under the skin will appear. If any of these occur, lie down as flat as you can and have someone apply firm pressure to the cath site with a gauze pad or a clean washcloth for 10-15 minutes. Call 911 or go to the Emergency Department. Additional Instructions: You need to stay on your plavix for at least one year. When you return to the office we will discuss cardiac rehab. Allergies/Adverse Reactions: Allergies valsartan [From Malgor[place]ata] Adverse Reaction (Verified 04/09/18 13:10) Other Medications to take at Discharge ALPRAZolam [Xanax] 0.25 mg PO TID 12/30/12 Esomeprazole Mag Trihydrate [Nexium] 40 mg PO BID 12/30/12 Guanfacine HCl [Tenex] 2 mg PO BID 12/30/12 Losartan Potassium [Cozaar] 100 mg PO DAILY 12/30/12 Multivitamins,Therapeutic [Multivitamin] 1 tab PO DAILY 12/30/12 Insulin Aspart [Novolog Flexpen] 30 units SUBCUT TIDCM #1 box 04/24/13 Oxycodone HCl/Acetaminophen [Percocet 5-325] 1 - 2 tab PO Q4H PRN PRN #30 tab 04/24/13 amlodipine 5 mg-olmesartan 40 mg tablet 1 tab PO BID tab 04/08/18 aspirin 81 mg tablet,delayed release 81 mg PO DAILY 04/08/18 carvedilol 25 mg tablet 50 mg PO BID tab 04/08/18 ferrous sulfate 325 mg (65 mg iron) tablet 325 mg PO DAILY tab 04/08/18 hydralazine 100 mg tablet 100 mg PO TID tab 04/08/18 metoclopramide 5 mg tablet 5 mg PO TID tab 04/08/18 omega 1-lyx-fxi-fish oil 1,000 mg (120 mg-180 mg) capsule 1 cap PO BID cap 04/08/18 celecoxib 200 mg capsule 1 capsule PO QODAY 90 Days #90 cap 04/09/18 clonidine HCl 0.2 mg tablet 0.2 mg PO Q8H tab 04/09/18 clopidogrel 75 mg tablet 75 mg PO DAILY #14 tab 04/09/18 insulin degludec (U-100) 100 unit/mL (3 mL) subcutaneous pen 180 unit SC QHS ml 04/09/18 paroxetine 30 mg tablet 37.5 mg PO DAILY tab 04/09/18 Primary Care Physician: Rory Samuel MD [Primary Care Provider] - Test Results: Test results from this visit will be discussed in further detail at your follow- up appointment, if applicable. Please Follow Up With: Lynn Antunez PA When: 04/22 at 3pm Cardiac Rehabilitation Info Cardiac Rehabilitation Program Information: Cardiac Rehabilitation is important for patients like you who are recovering from a heart problem. Cardiac rehabilitation programs are recognized as integral to the continued care of the patient with coronary heart disease. The cardiac rehabilitation program is designed to optimize a patient's physical, psychological, and social functioning. Health day care attendant work in cardiac rehabilitation programs and assist you with getting the treatments you need to get stronger and healthier - like exercise, healthy eating habits, and medications. Cardiac rehabilitation has been show to help people with heart problems live longer and have better life enjoyment than people who do not go to cardiac rehabilitation. Please contact the Cardiac Rehabilitation Program at [facility] at in two weeks if you have not heard from them. <Jerry Evans - Last Filed: 04/12/18 09:25> Test Results: Test results from this visit will be discussed in further detail at your follow- up appointment, if applicable. Proposed Discharge Date: 04/12/18 Cardiac Rehabilitation Info Cardiac Rehabilitation Program Information: Cardiac Rehabilitation is important for patients like you who are recovering from a heart problem. Cardiac rehabilitation programs are recognized as integral to the continued care of the patient with coronary heart disease. The cardiac rehabilitation program is designed to optimize a patient's physical, psychological, and social functioning. Health day care attendant work in cardiac rehabilitation programs and assist you with getting the treatments you need to get stronger and healthier - like exercise, healthy eating habits, and medications. Cardiac rehabilitation has been show to help people with heart problems live longer and have better life enjoyment than people who do not go to cardiac rehabilitation. Please contact the Cardiac Rehabilitation Program at [facility] at in two weeks if you have not heard from them.
[2018-04-11] MEDS: amLODIPine 10 MG Tablet PO (15:12)
--- NOTE | 2018-04-11 16:10 | CL.I_ITS ---
Patient Name: JESUS JOEL Study Date: 04/11/2018 Performing: Laura Lopez MD Ht: 79.13 inches 201 cm : 1955 Wt: 405.65 lbs 184 kg Age: 62 Gender: male BSA: 3.08 PROCEDURE(S) PERFORMED [id number] W OR WO PTCA, SINGLE CORONARY ARTERY [id number], EACH ADD'L CORONARY ART, SAME MAJOR CLINICAL PROFILE AND CO-MORBIDITIES Indications: Suspected CAD Heart Failure: None Stress/Imaging Stress Test w/SPECT MPI: Yes Result: Positive Intermediate Risk Stress Test with S PECT MPI: Positive Intermediate Risk CAD Presentations: No Sxs, no angina. CONCLUSIONS Successful ALVARO distal RCA/Prox RPDA using Synergy 3.5x16 RECOMMENDATIONS ASA Indefinitley Plavix for at least 12 months Follow up with Dr. Evans INTERVENTION INFORMATION LESION SITE: PDA (Ostial) Lesion Complexity: Non-High/Non-C Pre Stenosis: 90 % Pre intervention CAROLYN flow: 3 PROCEDURE: Drug Eluting Stent with post dilatation Post Stenosis: 0 % Post intervention CAROLYN flow: 3 Lesion Devices: Terumo .014 Runthrough Extra Floppy 180cm straight Stewart Sci Synergy MR ALVARO 3.50x16 Stewart Sci NC EMERGE MR 3.50x15 BALLOON LESION SITE: PL (1st) Lesion Devices: Stewart Sci NC EMERGE MR 3.50x15 BALLOON Stewart Sci EMERGE MR 3.00x12 BALLOON COMPLICATIONS No Complications PROCEDURE MEDICATIONS Fentanyl 50 mcg IV Versed 1 mg IV Versed 1 mg IV Fentanyl 25 mcg IV Versed 1 mg IV Fentanyl 25 mcg IV Oxygen: 2 L/min via nasal cannula Heparin diluted in 23cc Heparinized saline. Patient given 10cc IA of this solution. 04/11/2018 07:59:2 9 Heparin 2000 unit(s) IV 04/11/2018 08:43:31 Heparin 16483 unit(s) IV 04/11/2018 08:57:18 Heparin 4000 unit(s) IV 04/11/2018 09:05:58 Heparin 4000 unit(s) IV 04/11/2018 09:30:55 Nitro Tab 0.4 mg PO 04/11/2018 08:01:12 Nitro 200 mcg IC 04/11/2018 09:16:22 Verapamil 2.5mg, Ntg 100mcgs, 2000 units of Heparin diluted in 23cc Heparinized saline. Patient give n 10cc IA of this solution. 04/11/2018 07:59:29 SUMMARY OF HEMODYNAMIC DATA Time AIR REST ECG 07:09:04 AO 159/62 (103) SA 08:03:02 LV 149/0, 6 08:18:10 LV 157/2, 12 08:18:17 LV 170/0, 18 08:19:56 LVp 169/2, 17 08:20:02 AOp 164/67 (105) 08:20:07 RM AIR REST 10:10:14 Signed By Laura Lopez MD On 04/11/2018 16:09:09 Laura Lopez MD
[2018-04-11 17:07] LABS: Bedside Glucose 147 mg/dL (70-110)
[2018-04-11] MEDS: Carvedilol 25 MG Tablet 50 MG PO (20:40)
[2018-04-11] MEDS: amLODIPine 5 MG Tablet PO (21:32)
[2018-04-11] MEDS: Losartan Potassium 100 MG Tablet PO (21:33)
[2018-04-11 21:48] LABS: Bedside Glucose 156 mg/dL (70-110)
[2018-04-12] VITALS (12 sets, daily range): BP systolic 184–224; BP diastolic 73–93; PULSE 52–67; RESP 14–21; TEMP 36.9–37.2; O2SAT 93–97
[2018-04-12 02:02] LABS: Bedside Glucose 97 mg/dL (70-110)
[2018-04-12] MEDS: cloNIDine HCl 0.2 MG Tablet PO (05:27)
[2018-04-12] MEDS: 0.9% NaCl Peripheral Flush Adult/Peds IV (05:29)
[2018-04-12] MEDS: hydrALAZINE 50 MG Tablet 100 MG PO (05:39)
[2018-04-12 07:26] LABS: Absolute Lymphocyte Count 1.23 X10^3/ul (0.83-4.51); Absolute Neutrophil Count 6.7 X10^3/uL (2.0-7.7); Basophil# 0.02 X10^3/uL; Basophil% 0.2 % (0-1); Eosinophil# 0.27 X10^3/uL; Hematocrit 39.7 % (40-54); Hemoglobin 13.1 g/dl (13.0-16.5); Lymphocyte # 1.23 X10^3/ul (4.0); Lymphocyte % 13.7 % (19-41); Mean Corpuscular Hgb 30.3 pg (27.0-32.0); Mean Corpuscular Volume 91.7 fL (80-94); Mean Platelet Vol. 10.6 fl (6.2-12.0); Monocyte# 0.72 X10^3/uL; Neutrophil # 6.72 X10^3/uL (2.7-7.7); Neutrophil % 74.5 % (47-70); POSITIVE COUNT NO; POSITIVE DIFFERENTIAL NO; POSITIVE MORPHOLOGY NO; Platelet Count 222 K/mm3 (150-450); RBC Distribution Width CV 14.1 % (11.6-14.6); RBC Distribution Width SD 46.6 fl (35.1-43.9); Red Blood Count 4.33 M/mm3 (4.6-6.2)
[2018-04-12 07:34] LABS: Anion Gap 10 (5-15); BUN 16 mg/dL (7-18); Calcium,Total 8.5 mg/dL (8.5-10.1); Chloride 107 mmol/L (98-107); Creatinine, Serum 1.14 mg/dL (0.70-1.30); EST Glomerular Filtration Rate 69 mL/min (>60); Est Glom Filt Rate - Afr Amer 84 mL/min (>60); Estimated Creatinine Clearance 89.04 ml/min; Glucose 103 mg/dL (74-106); Potassium 3.4 mmol/L (3.5-5.1); Sodium Level 144 mmol/L (136-145)
[2018-04-12] MEDS: Losartan Potassium 100 MG Tablet PO (08:11)
[2018-04-12] MEDS: Aspirin E.C. 81 MG Tablet PO (08:14)
[2018-04-12] MEDS: Carvedilol 25 MG Tablet 50 MG PO (08:14)
[2018-04-12] MEDS: amLODIPine 5 MG Tablet PO (08:14)
[2018-04-12] MEDS: Clopidogrel Bisulfate 75 MG Tablet PO (08:14)
[2018-04-12 08:32] LABS: Bedside Glucose 108 mg/dL (70-110)
--- NOTE | 2018-04-12 09:22 | PN.CARD_ITS ---
Subjectve: Patient seen and evaluated. Appears to be doing well. No complaints. Objective: Vital Signs Temp Pulse Resp BP Pulse Ox 98.5 F 58 L 14 218/89 H 97 04/12/18 08:00 04/12/18 08:00 04/12/18 08:00 04/12/18 08:00 04/12/18 08:00 Oxygen Flow Rate (L/min) 2 Oxygen Delivery Method Room Air Weight: 407 lb 13.683 oz Body Mass Index (BMI) 45.7 Intake and Output for Last 24 Hours 04/10/18 04/11/18 04/12/18 23:59 23:59 23:59 Intake Total 977 / 977 360 / 360 Output Total 900 / 900 1050 / 1050 Balance 77 / 77 -690 / -690 General: Awake, Alert, Oriented x 3 HEENT: PERRL, EOMI, Sclera Non Icteric Neck: Supple, Good ROM, No Lymph Node Enlargement Lungs: Clear to auscultation Cardiovascular: Regular Rhythm, Normal S1, Normal S2, No Murmurs, No Rubs, No Gallops Vascular: No Carotid Bruits, Normal Femoral Pulses, Normal Radial Pulses, Normal Dorsalis Pedal Pulse, Normal Posterior Tibial Pulses Abdomen: Bowel Sounds Present, Soft, Non Tender, No HSM, No Organomegaly Extremities: No Cyanosis, No Clubbing, No edema Neurological: No Focal Motor or Sensory Deficit 04/12/18 07:05: Sodium 144, Potassium 3.4 L, Chloride 107, Carbon Dioxide 27.0, Anion Gap 10, BUN 16, Creatinine 1.14, Est GFR (MDRD) Af Amer 84, Est GFR (MDRD) Non-Af 69, BUN/Creatinine Ratio 14.0, Glucose 103, Calcium 8.5 04/12/18 07:05: WBC 9.0, RBC 4.33 L, Hgb 13.1, Hct 39.7 L, MCV 91.7, MCH 30.3, MCHC 33.0, RDW 14.1, RDW Differential 46.6 H, Plt Count 222, MPV 10.6, Immature Gran % (Auto) 0.600, Neut % (Auto) 74.5 H, Lymph % (Auto) 13.7 L, [place] % (Auto) 8.0, Eos % (Auto) 3.0, Baso % (Auto) 0.2, Absolute Neuts (auto) 6.7, Total Counted Not Reportable Rhythm: EKG: ECHO: Stress Test: Cardiac Cath: PCI: CT Surgery: Holter monitor: EPS: PPM: CXR: Chest CT Scan: Medical Necessity - Tobacco Use Smoking Status: Never smoker Assessment/Plan 1. Coronary artery disease * Patient is status post angioplasty and stenting of the right coronary artery. There was mild disease noted in the left anterior descending artery. Patient appears to have done well overnight with no chest pain or shortness of breath radial site appears to be intact and EKG is unremarkable. Patient however remains hypertensive and will be treated as an outpatient. Next Patient can be discharged for outpatient follow-up.
--- NOTE | 2018-04-12 10:00 | EKG12_ITS ---
Test Reason : AM EKG Blood Pressure : / mmHG Vent. Rate : 061 BPM Atrial Rate : 061 BPM P-R Int : 214 ms QRS Dur : 142 ms QT Int : 480 ms P-R-T Axes : 045 -52 117 degrees QTc Int : 483 ms Sinus rhythm with 1st degree A-V block with occasional Premature ventricular complexes Left axis deviation Left ventricular hypertrophy with QRS widening and repolarization abnormality Abnormal ECG When compared with ECG of 11-APR-2018 10:28, MANUAL COMPARISON REQUIRED, DATA IS UNCONFIRMED Confirmed by MISAEL HERRERA, HUSSEIN ([id number]), photo editor DALTON HURTADO ([id number]) on 04/17/2018 1:06:59 PM Referred By: Hussein Evans Confirmed By:HUSSEIN EVANS MD
== END 2018-04-12 09:22 | disposition home or self-care (01) ==
LOC: CLSP 06:32 → ICU 10:48
PROVIDERS: Internal Medicine Cardiovascular Disease; Family Provider Family Medicine; PCP Family Medicine; Referring Provider Internal Medicine Cardiovascular Disease; Visit Provider Internal Medicine Cardiovascular Disease
DX: I25.10 Atherosclerotic heart disease of native coronary artery without angina pectoris (principal); I27.21 Secondary pulmonary arterial hypertension; I25.2 Old myocardial infarction; I10 Essential (primary) hypertension; F32.9 Major depressive disorder, single episode, unspecified; K21.9 Gastro-esophageal reflux disease without esophagitis; E66.9 Obesity, unspecified; Z68.42 Body mass index [BMI] 45.0-49.9, adult; G47.33 Obstructive sleep apnea (adult) (pediatric); M19.90 Unspecified osteoarthritis, unspecified site; E11.9 Type 2 diabetes mellitus without complications; Z79.84 Long term (current) use of oral hypoglycemic drugs; Z79.4 Long term (current) use of insulin; Z79.899 Other long term (current) drug therapy
CPT/HCPCS: 36415; 71046; 80048; 82962; 85025; 85347; 92921; 92928; 93005; 93308; 93458; 99152; 99153; J7030; J7040; Q9967; A4216; C1725; C1769; C1874; C1887; C1894; C9600; J0583; J1327